=== PATIENT | female | born 1960 | race Caucasian/White ===

== ENCOUNTER → 2023-12-19 | Day surgery (SDC) | payer OTHER ==
[~2023-12-19] MED LIST: ASPIR 8181 MG PO; AZO PO; CALCIUM ACETAT667 MG PO; DEXMEDETOMIDINE HCL 200 MCG/2 ML VIAL ONE; FENTANYL CITRATE/PF 100MCG/2 ML INJ ONE; LIDOCAINE HCL 2% LOCAL INJ 5 ML SDV VIAL INJ ONE; METOCLOPRAMIDE HCL 10 MG/2ML VIAL ONE; MULTI-VITAMIN1 EACH PO; PROPOFOL IV EMULSION 10 MG/ML 50 ML VIAL IV ONE; TURMERIC 500 M1 EACH PO; VIT C PO; VITAMIN D PO
[2023-12-19] MEDS: LACTATED RINGER'S 1,000 ML ONE (09:29)
[2023-12-19 11:00] VITALS: BP 128/75; PULSE 60; RESP 16; O2SAT 99
== END | disposition home or self-care (01) ==
LOC: OR 08:53
PROVIDERS: ATTEND Internal Medicine Gastroenterology
DX: K20.90 Esophagitis, unspecified without bleeding (principal); K29.50 Unspecified chronic gastritis without bleeding; B96.81 Helicobacter pylori [H. pylori] as the cause of diseases classified elsewhere; Z98.84 Bariatric surgery status; Z86.010 Personal history of colon polyps; Z71.3 Dietary counseling and surveillance; I10 Essential (primary) hypertension; Z71.89 Other specified counseling; F17.210 Nicotine dependence, cigarettes, uncomplicated; Z71.6 Tobacco abuse counseling; Z68.25 Body mass index [BMI] 25.0-25.9, adult; Z86.16 Personal history of COVID-19
CPT/HCPCS: 43239; J2470; J7121; J2001; J2765

== ENCOUNTER 2024-06-23 01:22 | Inpatient (IN) | payer OTHER ==
[~2024-06-23] VITALS: Ht 177.8 cm; Wt 79.4 kg
[2024-06-23] VITALS (16 sets, daily range): BP systolic 99–145; BP diastolic 58–118; PULSE 62–135; RESP 15–19; TEMP 97.3–98.6; O2SAT 92–100
[~2024-06-23 01:22] MED LIST changes: -DEXMEDETOMIDINE HCL 200 MCG/2 ML VIAL ONE; -FENTANYL CITRATE/PF 100MCG/2 ML INJ ONE; -LIDOCAINE HCL 2% LOCAL INJ 5 ML SDV VIAL INJ ONE; -METOCLOPRAMIDE HCL 10 MG/2ML VIAL ONE; -PROPOFOL IV EMULSION 10 MG/ML 50 ML VIAL IV ONE
[2024-06-23 01:48] LABS: BASOPHILS % 0.8 % (0.0-1.0); EOSINOPHILS # (AUTO) 0.1 (0.0-0.4); EOSINOPHILS % 1.5 % (0.0-6.0); HEMATOCRIT 42.6 % (34.2-44.1); HEMOGLOBIN 12.7 g/dL (12.0-16.0); LYMPHOCYTES % 37.5 % (18.0-39.1); MEAN CORPUSCULAR HEMOGLOBIN 26.6 pg (28-32); MEAN CORPUSCULAR HGB CONC 29.8 g/dL (31-35); MEAN CORPUSCULAR VOLUME 89.1 fL (81-99); MONOCYTES # (AUTO) 0.7 (0.2-0.8); MONOCYTES % 12.5 % (4.4-11.3); NEUTROPHILS # (AUTO) 2.5 (2.1-6.9); NEUTROPHILS % 47.5 % (38.7-80.0); PLATELET COUNT 203 x10e3/uL (140-360); RED BLOOD COUNT 4.78 x10e6/uL (3.6-5.1); RED CELL DISTRIBUTION WIDTH 15.5 % (11.7-14.4); WHITE BLOOD COUNT 5.26 x10e3/uL (4.8-10.8)
[2024-06-23] MEDS: METOPROLOL TARTRATE INJ 1 MG/ML VIAL IV STA ×3 (01:48→05:03)
[2024-06-23] MEDS: DIGOXIN INJ 0.25 MG/ML 2 ML AMP IV STA (01:51)
[2024-06-23] MEDS: DILTIAZEM HCL 5 MG/ML 5 ML VIAL IV STA (01:52)
[2024-06-23] MEDS ORDERED: ONDANSETRON HCL INJ 2MG/ML 2ML 2 MG/ML VIAL ONE (01:52)
[2024-06-23 02:16] LABS: ALANINE AMINOTRANSFERASE 21 IU/L (0-55); ALBUMIN/GLOBULIN RATIO 1.1 (0.8-2.0); ALKALINE PHOSPHATASE 68 IU/L (40-150); ANION GAP 19.9 mmol/L (8-16); BILIRUBIN,TOTAL 0.8 mg/dL (0.2-1.2); BLOOD UREA NITROGEN 16 mg/dL (7-26); BUN/CREATININE RATIO 21 (6-25); CALCIUM 9.6 mg/dL (8.4-10.2); CARBON DIOXIDE 20 mmol/L (22-29); CHLORIDE 105 mmol/L (98-107); CREATINE KINASE 69 IU/L (29-168); CREATININE, SERUM 0.77 mg/dL (0.57-1.11); EST GLOMERULAR FILTRATION RATE 86 ML/MIN (>=60); GLUCOSE 104 mg/dL (74-118); POTASSIUM 3.9 mmol/L (3.5-5.1); SODIUM 141 mmol/L (136-145); TOTAL PROTEIN 7.6 g/dL (6.5-8.1)
[2024-06-23] MEDS ORDERED: ONDANSETRON HCL INJ 2MG/ML 2ML 2 MG/ML VIAL IV PRN (02:30)
[2024-06-23] MEDS ORDERED: Morphine 2mg Syringe 2 MG/ML SYR IV PRN (02:30)
[2024-06-23 02:32] LABS: TROPONIN I < 0.05 ng/mL (0.0-0.40)
[2024-06-23] MEDS: ONDANSETRON HCL INJ 2MG/ML 2ML 2 MG/ML VIAL IV STA (03:05)
[2024-06-23] MEDS: SODIUM CHLORIDE 0.9% 1000ML 1,000 ML IV SCH (03:43)
[2024-06-23 03:55] LABS: ANISOCYTOSIS SLIGHT; HYPOCHROMASIA SLIGHT; PLATELET ESTIMATE ADEQUATE; PLATELET MORPHOLOGY COMMENT NORMAL; RBC MORPHOLOGY COMMENT ABNORMAL; TEAR DROP CELLS FEW
[2024-06-23] MEDS: AMIODARONE 900MG 500 ML IV ONE (06:42)
[2024-06-23] MEDS: ACETAMINOPHEN 325 MG TAB PO PRN (07:23)
[2024-06-23 09:49] LABS: TROPONIN I 0.024 ng/mL (0-0.300)
[2024-06-23 10:03] LABS: FREE THYROXINE INDEX 1.6489 (1.4-3.8); T3 UPTAKE 27.3 % (22.5-37.0); T4 (THYROXINE) 6.04 ug/dL (4.5-10.9); THYROID STIMULATING HORMONE 1.213 uIU/mL (0.350-4.940)
[2024-06-23] MEDS: ENOXAPARIN INJ 80 MG/0.8 ML SYR SC SCH (11:13)
[2024-06-24] VITALS (15 sets, daily range): BP systolic 121–152; BP diastolic 67–97; PULSE 60–74; RESP 11–19; TEMP 98–98.4; O2SAT 93–99
[2024-06-24 08:08] LABS: TROPONIN I 0.071 ng/mL (0-0.300)
[2024-06-24 08:56] LABS: BASOPHILS % 0.5 % (0.0-1.0); EOSINOPHILS # (AUTO) 0.1 (0.0-0.4); HEMATOCRIT 35.8 % (34.2-44.1); HEMOGLOBIN 10.8 g/dL (12.0-16.0); LYMPHOCYTES # (AUTO) 1.4 (1.0-3.2); LYMPHOCYTES % 34.2 % (18.0-39.1); MEAN CORPUSCULAR HEMOGLOBIN 27.1 pg (28-32); MEAN CORPUSCULAR HGB CONC 30.2 g/dL (31-35); MEAN CORPUSCULAR VOLUME 89.7 fL (81-99); MONOCYTES # (AUTO) 0.5 (0.2-0.8); MONOCYTES % 13.4 % (4.4-11.3); NEUTROPHILS % 49.9 % (38.7-80.0); PLATELET COUNT 182 x10e3/uL (140-360); RED BLOOD COUNT 3.99 x10e6/uL (3.6-5.1); RED CELL DISTRIBUTION WIDTH 15.5 % (11.7-14.4); WHITE BLOOD COUNT 4.03 x10e3/uL (4.8-10.8)
[2024-06-24 09:13] LABS: ALBUMIN 3.2 g/dL (3.5-5.0); ALBUMIN/GLOBULIN RATIO 1.2 (0.8-2.0); ANION GAP 12.7 mmol/L (8-16); BILIRUBIN,TOTAL 0.8 mg/dL (0.2-1.2); CALCIUM 8.3 mg/dL (8.4-10.2); CREATININE, SERUM 0.66 mg/dL (0.57-1.11); POTASSIUM 3.7 mmol/L (3.5-5.1); TOTAL PROTEIN 5.9 g/dL (6.5-8.1)
[2024-06-25 04:00] VITALS: BP 124/78; PULSE 63; RESP 17; TEMP 98.1; O2SAT 100
[2024-06-25 08:00] VITALS: BP 139/80; PULSE 62; RESP 18; TEMP 98.1; O2SAT 100
[2024-06-25] MEDS: AMIODARONE HCL 200 MG TAB PO SCH (08:45)
[2024-06-25 08:53] VITALS: BP 139/80; PULSE 62; RESP 18; TEMP 98.1; O2SAT 100
[2024-06-25 12:00] VITALS: BP 129/86; PULSE 66; RESP 18; TEMP 98.3; O2SAT 100
== END 2024-06-25 16:06 | disposition home or self-care (01) | DRG 310 ==
LOC: ER 01:28 → ERHOLD 02:23 → MED/SURG 03:21 → ICU 17:13 → MED/SURG3 06-24 22:14
PROVIDERS: ADMIT Family Medicine; ATTEND Family Medicine
DX: I48.0 Paroxysmal atrial fibrillation (principal); R51.9 Headache, unspecified; F17.210 Nicotine dependence, cigarettes, uncomplicated; Z86.711 Personal history of pulmonary embolism; Z98.84 Bariatric surgery status; Z79.899 Other long term (current) drug therapy
CPT/HCPCS: 36415; 71045; 80053; 82550; 83690; 83735; 83880; 84436; 84443; 84479; 84484; 85025; 93005; 93306; 94799; 99284; J1160; J1650; J2405; J7030